=== PATIENT | male | born 1985 | race Hispanic/Latino ===

== ENCOUNTER 2017-02-26 02:05 | Emergency (ER) | payer BC ==
[2017-02-26 02:22] VITALS: BP 155/98; RESP 16; TEMP 98.6; O2SAT 100
[2017-02-26] MEDS ORDERED: Sodium Chloride 0.9% 1,000 ML IV STA (02:28)
--- NOTE | 2017-02-26 02:37 | ED PDOC ---
HPI: Chest Pain Time Seen by Provider: 02/26/17 02:12 Chief Complaint (Nursing): Palpitations Chief Complaint (Provider): Palpitations History Per: Patient History/Exam Limitations: no limitations Onset/Duration Of Symptoms: Mins Current Symptoms Are (Timing): Still Present Severity: Moderate Associated Symptoms: denies: Nausea Additional History Per: Patient Additional Complaint(s): The pt is a 31yo male, no PMHx, presents to the ED for evaluation of palpitations and chest discomfort since last night. Patient reports that he is a daily drinker with 6 shots of vodka every day - he reports on , he went out and drank more than usual. Patient then reports he had episodes of palpitation and shortness of breath throughout the day yesterday - he states he had some chest discomfort and describes it as "a muscle spasm." Pt reports there were some instances when he felt faint but denies passing out. Pt reports he was able to go to sleep but the palpitations came back, prompting his visit to the ED. He denies any other medical complaints. PCP: Dr. Russo Past Medical History Reviewed: Historical Data, Nursing Documentation, Vital Signs Vital Signs: Last Vital Signs Temp 98.6 F 02/26/17 02:20 Pulse 87 02/26/17 03:34 Resp 16 02/26/17 02:20 BP 155/98 H 02/26/17 02:20 Pulse Ox 100 02/26/17 03:34 - Medical History PMH: No Chronic Diseases - Surgical History Surgical History: No Surg Hx - Family History Family History: States: Unknown Family Hx - Social History Current smoker - smoking cessation education provided: No Alcohol: > 2 Drinks/Day (6 shots vodka/day) - Allergies Allergies/Adverse Reactions: Allergies Allergy/AdvReac Type Severity Reaction Status Date / Time No Known Allergies Allergy Verified 02/26/17 02:22 Review of Systems ROS Statement: Except As Marked, All Systems Reviewed And Found Negative Cardiovascular: Positive for: Palpitations, Other (chest discomfort) Gastrointestinal: Negative for: Nausea, Vomiting Physical Exam - Reviewed Nursing Documentation Reviewed: Yes Vital Signs Reviewed: Yes - Physical Exam Appears: Positive for: Well, Non-toxic, No Acute Distress Head Exam: Positive for: ATRAUMATIC, NORMAL INSPECTION, NORMOCEPHALIC Skin: Positive for: Normal Color, Warm, DRY Eye Exam: Positive for: Normal appearance, EOMI, PERRL Neck: Positive for: Normal, Supple Cardiovascular/Chest: Positive for: Regular Rate, Rhythm Respiratory: Positive for: Normal Breath Sounds. Negative for: Respiratory Distress Gastrointestinal/Abdominal: Positive for: Normal Exam, Soft. Negative for: Tenderness Extremity: Positive for: Normal ROM. Negative for: Deformity, Swelling Neurologic/Psych: Positive for: Alert, Oriented. Negative for: Motor/Sensory Deficits - Laboratory Results Result Diagrams: 02/26/17 02:36 02/26/17 02:36 - ECG ECG: Positive for: Interpreted By Me, Viewed By Me ECG Rhythm: Positive for: Normal QRS, Normal ST Segment, Sinus Rhythm. Negative for: ST/T Changes Rate: 87 O2 Sat by Pulse Oximetry: 100 (RA) Pulse Ox Interpretation: Normal Medical Decision Making Medical Decision Making: Time: 0230 Impression: Palpitations Differential: Cardiac arrhythmia, dehydration, electrolyte withdrawal; alcohol withdrawal less likely but possible Plan: * CBC * CMP * Troponin * EKG * Reassess Time: 033 Labs reviewed and indicate hypokalemia, hypocalcemia, hypomagnesemia. Ordered folic acid, magnesium sulfate, and thiamine Scribe Attestation: Documented by Laury Frederick acting as a scribe for January Duarte MD. Provider Attestation: All medical record entries made by the Scribe were at my direction and personally dictated by me. I have reviewed the chart and agree that the record accurately reflects my personal performance of the history, physical exam, medical decision making, and the department course for this patient. I have also personally directed, reviewed, and agree with the discharge instructions and disposition. Disposition - Clinical Impression Clinical Impression: Palpitations, Hypokalemia, Hypocalcemia, Hypomagnesemia, Alcohol abuse - Patient ED Disposition Is Patient to be Admitted: No Doctor Will See Patient In The: Office Counseled Patient/Family Regarding: Studies Performed, Diagnosis, Need For Followup - Disposition Referrals: [facility] [Outside] Disposition: Routine/Home Disposition Time: 18:30 Condition: GOOD Additional Instructions: Follow up with your PCP in 2-3 days. Instructions: Abuse of Alcohol (ED), Hypokalemia (ED), Palpitations (ED)
[2017-02-26 02:42] VITALS: PULSE 87
[2017-02-26 02:44] LABS: BASO % 0.7 % (0.0-2.0); EOS # 0.1 K/uL (0.0-0.7); EOS % 1.5 % (0.0-4.0); HEMATOCRIT 33.8 % (35.0-51.0); LYMPH # 1.9 K/uL (1.0-4.3); LYMPH % 39.3 % (20.0-40.0); MEAN CELL VOLUME 86.4 fl (80.0-94.0); MEAN CORPUSCULAR HEMOGLOBIN 28.7 pg (27.0-31.0); MEAN CORPUSCULAR HGB CONC 33.2 g/dL (33.0-37.0); MEAN PLATELET VOLUME 7.5 fl (7.2-11.7); MONO # 0.4 K/uL (0.0-0.8); NEUT # 2.4 K/uL (1.8-7.0); NEUT % 49.5 % (50.0-75.0); NRBC % 0.1 % (0.0-0.0); RED CELL DISTRIBUTION WIDTH 13.4 % (11.5-14.5); WHITE BLOOD COUNT 4.8 K/uL (4.8-10.8)
[2017-02-26 02:53] LABS: ALB/GLOB RATIO 1.2 (1.0-2.1); ALCOHOL SERUM < 10 mg/dl (0-10); ALKALINE PHOSPHATASE 51 U/L (38-126); ALT/SGPT 117 U/L (21-72); AST/SGOT 78 U/L (17-59); BILIRUBIN,TOTAL 0.3 mg/dl (0.2-1.3); BLOOD UREA NITROGEN 8 mg/dl (9-20); CARBON DIOXIDE 19 mmol/L (22-30); CHLORIDE 116 mmol/L (98-107); GFR AFRICAN-AMERICAN > 60; GLUCOSE,RANDOM 78 mg/dL (75-110); MAGNESIUM 1.2 MG/DL (1.6-2.3); SODIUM 143 mmol/l (132-148); TOTAL PROTEIN 4.9 G/DL (6.3-8.2)
[2017-02-26 03:06] LABS: POTASSIUM 2.3 MMOL/L (3.6-5.0)
[2017-02-26] MEDS ORDERED: Potassium Chloride 20 mEq ER Tab PO ONE ×4 (03:07→06:50)
[2017-02-26] MEDS ORDERED: Magnesium Sulfate 2 GM in Sodium Chloride 0.9% 100 ML IVPB ONE (03:07)
[2017-02-26 03:23] LABS: THYROID STIMULATING HORMONE 1.17 mIU/ML (0.46-4.68)
[2017-02-26] MEDS ORDERED: Potassium CL 10mEq/100ml 100 ML IVPB SCH (04:00)
--- NOTE | 2017-02-26 10:43 | CARD ---
APPROVED REPORT EKG Measurement Heart [id number] <Conclusion> Normal sinus rhythm Normal ECG
== END 2017-02-26 07:00 | disposition home or self-care (01) ==
LOC: H.ER 02:05
DX: R00.2 Palpitations (principal); F10.129 Alcohol abuse with intoxication, unspecified; E87.6 Hypokalemia; R07.89 Other chest pain
CPT/HCPCS: 80053; 83735; 84443; 84484; 85025; 93005; 96374; 99284; G0480; J0610; J3475; J3480; J7040

== ENCOUNTER 2017-04-28 20:54 | Emergency (ER) | payer BC ==
[2017-04-28 20:59] VITALS: BP 159/100; PULSE 122; RESP 18; TEMP 98.6; O2SAT 97
--- NOTE | 2017-04-28 21:34 | ED PDOC ---
Lower Extremity Pain/Injury Time Seen by Provider: 04/28/17 21:04 Chief Complaint (Nursing): Lower Extremity Problem/Injury Chief Complaint (Provider): calf injury History Per: Patient History/Exam Limitations: no limitations Onset/Duration Of Symptoms: Hrs (1) Current Symptoms Are (Timing): Still Present Additional History Per: Patient Additional Complaint(s): 31 y/o male no past medical history presents with right calf injury x 1 hour. Patient states he was playing kickball, after kicking the ball he went to step off of right leg to run to base and felt a "pop" in the back of his leg. Patient notes pain worse with weight-bearing and moving right ankle. Denies numbness/weakness right lower extremity. Past Medical History Reviewed: Historical Data, Nursing Documentation, Vital Signs Vital Signs: Last Vital Signs Temp 98.6 F 04/28/17 20:55 Pulse 122 H 04/28/17 20:55 Resp 18 04/28/17 20:55 BP 159/100 H 04/28/17 20:55 Pulse Ox 97 04/28/17 20:55 - Medical History PMH: No Chronic Diseases - Surgical History Surgical History: No Surg Hx - Family History Family History: States: Unknown Family Hx - Home Medications Home Medications: Ambulatory Orders Medication Instructions Recorded Cyclobenzaprine [Cyclobenzaprine 10 mg PO BID PRN #10 tab 04/28/17 HCl] Ibuprofen [Motrin Tab] 800 mg PO Q8 PRN #20 tab 04/28/17 - Allergies Allergies/Adverse Reactions: Allergies Allergy/AdvReac Type Severity Reaction Status Date / Time No Known Allergies Allergy Verified 04/28/17 20:55 Review of Systems ROS Statement: Except As Marked, All Systems Reviewed And Found Negative Musculoskeletal: Positive for: Leg Pain (right posterior) Physical Exam - Reviewed Nursing Documentation Reviewed: Yes Vital Signs Reviewed: Yes - Physical Exam Appears: Positive for: Well, Non-toxic, No Acute Distress Head Exam: Positive for: ATRAUMATIC, NORMAL INSPECTION, NORMOCEPHALIC Pulses-Dorsalis Pedis (L): 2+ Pulses-Dorsalis Pedis (R): 2+ Pulses-Post. Tibialis (L): 2+ Pulses-Post. Tibialis (R): 2+ Extremity: Positive for: Tenderness (right proximal/medial calf tender to palpate; no swelling, ecchymosis, deformity noted. Pain to proximal calf upon dorsiflexion right ankle), Capillary Refill (<2 sec b/l LE). Negative for: Pedal Edema, Swelling Neurologic/Psych: Positive for: Alert, Oriented. Negative for: Motor/Sensory Deficits - ECG O2 Sat by Pulse Oximetry: 97 - Progress ED Course And Treament: Toradol IM, u/s EXAM: US Right Lower Extremity Non-Vascular, Complete CLINICAL HISTORY: 31 years old, male; Injury or trauma; Injury Got hurt while playing as per pt. ; Initial encounter; Blunt trauma; Lower leg; Right; Injury date: Today; Additional info: Injury/pain proximal calf TECHNIQUE: Real-time ultrasound scan of the right lower extremity with image documentation. COMPARISON: No relevant prior studies available. FINDINGS: Soft tissues: 3.5 x 0.8 x 3.4 cm hypoechoic lesion with internal echoes within proximal calf. No internal vascularity. IMPRESSION: 1. Soft tissue lesion, nonspecific. DDX: Hematoma, complex cyst, abscess, neoplasm. Clinical correlation is needed. 2. Incidental/non-acute findings are described above. Thank you for allowing us to participate in the care of your patient. Patient right lower extremity placed in knee immobilizer; crutches given with demonstration on use. Advised RICE, rx Naproxen, flexeril given. Follow up PMD for MRI. Return to ED for worsening/concerning symptoms. Disposition - Clinical Impression Clinical Impression: Strain of calf muscle - Patient ED Disposition Is Patient to be Admitted: No Counseled Patient/Family Regarding: Studies Performed, Diagnosis, Need For Followup, Rx Given - Disposition Referrals: Apolinar Diaz MD [Staff Provider] - [facility] [Outside] Disposition: Routine/Home Disposition Time: 23:21 Condition: IMPROVED Prescriptions: Cyclobenzaprine [Cyclobenzaprine HCl] 10 mg PO BID PRN #10 tab PRN Reason: Muscle Spasm Ibuprofen [Motrin Tab] 800 mg PO Q8 PRN #20 tab PRN Reason: Pain, Moderate (4-7) Instructions: Muscle Strain (ED), RICE Therapy (ED) Forms: [employer] (Welsh)
--- NOTE | 2017-04-28 22:59 | US ---
EXAM: US Right Lower Extremity Non-Vascular, Complete CLINICAL HISTORY: 31 years old, male; Injury or trauma; Injury Got hurt while playing as per pt. ; Initial encounter; Blunt trauma; Lower leg; Right; Injury date: Today; Additional info: Injury/pain proximal calf TECHNIQUE: Real-time ultrasound scan of the right lower extremity with image documentation. COMPARISON: No relevant prior studies available. FINDINGS: Soft tissues: 3.5 x 0.8 x 3.4 cm hypoechoic lesion with internal echoes within proximal calf. No internal vascularity. IMPRESSION: 1. Soft tissue lesion, nonspecific. DDX: Hematoma, complex cyst, abscess, neoplasm. Clinical correlation is needed. 2. Incidental/non-acute findings are described above.
== END 2017-04-28 23:37 | disposition home or self-care (01) ==
LOC: H.ER 20:54
DX: S86.111A Strain of other muscle(s) and tendon(s) of posterior muscle group at lower leg level, right leg, initial encounter (principal); X50.9XXA Other and unspecified overexertion or strenuous movements or postures, initial encounter; Y92.89 Other specified places as the place of occurrence of the external cause
CPT/HCPCS: 29530; 76881; 96372; 99282; J1885; L1830

== ENCOUNTER 2017-06-11 12:39 | Emergency (ER) | payer BC ==
[2017-06-11] MEDS ORDERED: Alum-Mag Hydrox-Simethicone Susp (30 mL) PO STA (13:06)
[2017-06-11] MEDS ORDERED: Sodium Chloride 0.9% 1,000 ML IV STA (13:07)
[2017-06-11 13:47] LABS: BASO % 0.3 % (0.0-2.0); EOS # 0.1 K/uL (0.0-0.7); EOS % 1.8 % (0.0-4.0); HEMATOCRIT 39.6 % (35.0-51.0); LYMPH # 1.9 K/uL (1.0-4.3); LYMPH % 34.4 % (20.0-40.0); MEAN CELL VOLUME 85.3 fl (80.0-94.0); MEAN CORPUSCULAR HEMOGLOBIN 29.5 pg (27.0-31.0); MEAN CORPUSCULAR HGB CONC 34.5 g/dL (33.0-37.0); MEAN PLATELET VOLUME 6.9 fl (7.2-11.7); MONO # 0.4 K/uL (0.0-0.8); MONO % 7.6 % (0.0-10.0); NEUT # 3.2 K/uL (1.8-7.0); NEUT % 55.9 % (50.0-75.0); NRBC % 0.2 % (0.0-0.0); RED CELL DISTRIBUTION WIDTH 13.3 % (11.5-14.5); WHITE BLOOD COUNT 5.7 K/uL (4.8-10.8)
[2017-06-11 13:51] VITALS: RESP 18
[2017-06-11 13:57] LABS: ALB/GLOB RATIO 1.4 (1.0-2.1); ALKALINE PHOSPHATASE 67 U/L (38-126); ALT/SGPT 56 U/L (21-72); AST/SGOT 40 U/L (17-59); BILIRUBIN,TOTAL 0.4 mg/dl (0.2-1.3); BLOOD UREA NITROGEN 12 mg/dl (9-20); CALCIUM 9.3 mg/dL (8.4-10.2); CARBON DIOXIDE 21 mmol/L (22-30); CHLORIDE 103 mmol/L (98-107); GFR AFRICAN-AMERICAN > 60; GLUCOSE,RANDOM 112 mg/dL (75-110); LIPASE 51 U/L (23-300); MAGNESIUM 1.9 MG/DL (1.6-2.3); POTASSIUM 3.6 MMOL/L (3.6-5.0); SODIUM 144 mmol/l (132-148); TOTAL PROTEIN 7.7 G/DL (6.3-8.2)
[2017-06-11 15:11] VITALS: O2SAT 100
--- NOTE | 2017-06-11 15:44 | ED PDOC ---
HPI: Abdomen Time Seen by Provider: 06/11/17 13:06 Chief Complaint (Nursing): Abdominal Pain Chief Complaint (Provider): abdominal pain History Per: Patient (31 y/o male here with complaint of epigastric pain suddenly occurring today while watching TV. Admits THC today. Notes alcohol intake yesterday. Denies any vomiting. Notes heart racing today unsure if he was having panic attack.) Past Medical History Reviewed: Historical Data, Nursing Documentation, Vital Signs Vital Signs: Last Vital Signs Temp 98.2 F 06/11/17 12:40 Pulse 93 H 06/11/17 15:11 Resp 18 06/11/17 15:11 BP 142/84 06/11/17 15:11 Pulse Ox 100 06/11/17 15:11 - Family History Family History: States: Unknown Family Hx - Home Medications Home Medications: Ambulatory Orders Medication Instructions Recorded Cyclobenzaprine [Cyclobenzaprine 10 mg PO BID PRN #10 tab 04/28/17 HCl] Ibuprofen [Motrin Tab] 800 mg PO Q8 PRN #20 tab 04/28/17 Ranitidine HCl [Zantac 75] 75 mg PO BID #10 tablet 06/11/17 - Allergies Allergies/Adverse Reactions: Allergies Allergy/AdvReac Type Severity Reaction Status Date / Time No Known Allergies Allergy Verified 04/28/17 20:55 Review of Systems ROS Statement: Except As Marked, All Systems Reviewed And Found Negative Gastrointestinal: Positive for: Abdominal Pain Physical Exam - Reviewed Nursing Documentation Reviewed: Yes Vital Signs Reviewed: Yes - Physical Exam Appears: Positive for: Well, Non-toxic, No Acute Distress Head Exam: Positive for: ATRAUMATIC, NORMAL INSPECTION, NORMOCEPHALIC Skin: Positive for: Normal Color, Warm, DRY Eye Exam: Positive for: EOMI, Normal appearance, PERRL ENT: Positive for: Normal ENT Inspection Neck: Positive for: Normal, Painless ROM Cardiovascular/Chest: Positive for: Regular Rate, Rhythm Respiratory: Positive for: CNT, Normal Breath Sounds Gastrointestinal/Abdominal: Positive for: Normal Exam, Bowel Sounds, Soft Back: Positive for: Normal Inspection Extremity: Positive for: Normal ROM Neurologic/Psych: Positive for: Alert, Oriented - Laboratory Results Result Diagrams: 06/11/17 13:00 06/11/17 13:00 - ECG ECG Rhythm: Positive for: Sinus Rhythm (nsr 98 bpm no ectopy no acute changes) O2 Sat by Pulse Oximetry: 100 - Progress ED Course And Treament: patient refused iv fluids Maalox 30 ml po Patient has had nontender abdomen earlier. Feels improved after maalox. Disposition - Clinical Impression Clinical Impression: Gastritis - Patient ED Disposition Is Patient to be Admitted: No - Disposition Referrals: [facility] [Outside] Disposition: Routine/Home Disposition Time: 15:45 Condition: FAIR Prescriptions: Ranitidine HCl [Zantac 75] 75 mg PO BID #10 tablet Instructions: Gastritis (ED) Forms: [employer] (Guamanian)
[2017-06-11 16:36] VITALS: BP 141/79; PULSE 90; TEMP 98
--- NOTE | 2017-06-13 08:19 | CARD ---
APPROVED REPORT EKG Measurement Heart [id number] <Conclusion> Normal sinus rhythm Possible Left atrial enlargement
== END 2017-06-11 16:35 | disposition home or self-care (01) ==
LOC: H.ER 12:39
DX: K29.70 Gastritis, unspecified, without bleeding (principal)

== ENCOUNTER 2019-01-27 11:28 | Emergency (ER) | payer SELFPAY ==
[2019-01-27 11:37] VITALS: O2SAT 98; BMI 27.9
[2019-01-27] MEDS ORDERED: Multivitamin (MVI) 10 ML, Thiamine 100 MG, Folic Acid 1 MG in Sodium Chloride 0.9% 1,00... IV STA (11:58)
--- NOTE | 2019-01-27 12:35 | ED PDOC ---
HPI: Chest Pain Time Seen by Provider: 01/27/19 11:42 Chief Complaint (Nursing): Chest Pain Chief Complaint (Provider): Chest Pain History Per: Patient History/Exam Limitations: no limitations Onset/Duration Of Symptoms: Persistent, Worse Since (this morning) Current Symptoms Are (Timing): Still Present Additional Complaint(s): 33 year old male with medical history of anxiety, ADHD, and HTN, presents to the emergency department with a complaint of palpitations for the past 3 months. Patient reports heart feels like its racing more often with multiple episodes of suddenly waking up with tingling sensation in his fingers. He admits to daily alcohol use, approximately, 750ml of hard liquor for the past 3 years. Additionally, patient has increase in prescribed Xanax use: progressed dosage from 0.25mg to 1.50mg. He reports associated upper abdominal pain, recent weight loss, and states he drank alcohol and Xanax this morning. Last use of Adderall was yesterday. Otherwise, he denies upper hallucinations, suicidal or homicidal ideation. Past Medical History Reviewed: Historical Data, Nursing Documentation, Vital Signs Vital Signs: Last Vital Signs Temp 98.8 F 01/27/19 11:36 Pulse 55 L 01/27/19 11:36 Resp 18 01/27/19 11:36 BP 153/99 H 01/27/19 11:36 Pulse Ox 98 01/27/19 11:36 Primary Care Provider: FAMILY PROVIDER,NO - Medical History PMH: Anxiety, HTN - Family History Family History: States: Unknown Family Hx - Social History Current smoker - smoking cessation education provided: Yes (vapes) Alcohol: > 2 Drinks/Day Drugs: Cannabis (occasionally), Prescription medications (xanax; adderall) - Home Medications Home Medications: Ambulatory Orders Medication Instructions Recorded Cyclobenzaprine [Cyclobenzaprine 10 mg PO BID PRN #10 tab 04/28/17 HCl] Ibuprofen [Motrin Tab] 800 mg PO Q8 PRN #20 tab 04/28/17 Ranitidine HCl [Zantac 75] 75 mg PO BID #10 tablet 06/11/17 - Allergies Allergies/Adverse Reactions: Allergies Allergy/AdvReac Type Severity Reaction Status Date / Time No Known Allergies Allergy Verified 01/27/19 11:45 Review of Systems ROS Statement: Except As Marked, All Systems Reviewed And Found Negative Constitutional: Positive for: Weight loss Cardiovascular: Positive for: Palpitations Gastrointestinal: Positive for: Abdominal Pain (upper) Neurological: Positive for: Other (tingling sensation to fingers) Psych: Negative for: Suicidal ideation (or homicidal ideation/hallucinations) Physical Exam - Reviewed Nursing Documentation Reviewed: Yes Vital Signs Reviewed: Yes - Physical Exam Appears: Positive for: Well, No Acute Distress Head Exam: Positive for: ATRAUMATIC, NORMOCEPHALIC Skin: Positive for: Warm, Dry Eye Exam: Positive for: EOMI, PERRL ENT: Negative for: Pharyngeal Erythema, Tonsillar Exudate Neck: Positive for: Painless ROM, Supple Cardiovascular/Chest: Positive for: Regular Rate, Rhythm. Negative for: Murmur Respiratory: Positive for: Normal Breath Sounds. Negative for: Respiratory Distress Gastrointestinal/Abdominal: Positive for: Soft. Negative for: Tenderness, Mass, Guarding, Rebound Back: Positive for: Normal Inspection. Negative for: Decreased ROM Extremity: Positive for: Normal ROM. Negative for: Deformity Lymphatic: Negative for: Adenopathy Neurological/Psych: Positive for: Awake, Alert, Oriented (x3), Mood/Affect (anxious/midly anxious), Other (normal speech/thought process/concentration). Negative for: Motor/Sensory Deficits - ECG O2 Sat by Pulse Oximetry: 98 (RA) Pulse Ox Interpretation: Normal Medical Decision Making Medical Decision Making: Initial Impression: alcohol-use disorder; benzodiazepines dependence Time: 1233 --EKG: sinus bradycardia at 54 BPM. Normal QRS with (-) ST segment changes. --Offered labs to further evaluate for electrolyte abnormality. patient declines work-up and prefers to follow up in outpatient setting. provider strongly recommends addiction services and provided appropriate resources. additionally, provider discussed with patient, at length, to seek help with addiction. patient verbalizes understanding. Patient is, otherwise, medically stable for discharge home. Return precautions discussed. Clinical Impression: anxiety; alcohol-use disorder; benzodiazepines dependence; palpitations Scribe Attestation: Documented by Merlyn Willingham, acting as a scribe for Suki Garcia MD. Provider Scribe Attestation: All medical record entries made by the Scribe were at my direction and personally dictated by me. I have reviewed the chart and agree that the record accurately reflects my personal performance of the history, physical exam, medical decision making, and the department course for this patient. I have also personally directed, reviewed, and agree with the discharge instructions and disposition. Disposition - Clinical Impression Clinical Impression: Alcohol use disorder, Benzodiazepine dependence, Palpitations, Anxiety - Patient ED Disposition Is Patient to be Admitted: No Counseled Patient/Family Regarding: Diagnosis, Need For Followup - Disposition Referrals: [facility] [Outside] Disposition: Routine/Home Disposition Time: 12:15 Condition: STABLE Additional Instructions: FOLLOWUP SOON POSSIBLE WITH YOUR PHYSICIAN FOR FURTHER ASSISTANCE. YOU CAN ALSO CALL THE [facility] FOR ASSISTANCE WITH SCHEDULING APPOINTMENTS FOR SPECIALISTS OR TESTS. RETURN TO ER FOR WORSENING SYMPTOMS. Instructions: Anxiety, Adult (DC), Prescription Drug Abuse (DC), Alcohol Abuse and Alcoholism (DC), Palpitations (DC) Forms: [employer] (Portuguese)
[2019-01-27 12:38] VITALS: BP 150/97; PULSE 66; RESP 16; TEMP 98
--- NOTE | 2019-01-28 09:47 | CARD ---
APPROVED REPORT Date of service: 01/27/2019 EKG Measurement Heart [id number] 132P-6 [id number] <Conclusion> Sinus bradycardia with sinus arrhythmia Otherwise normal ECG
== END 2019-01-27 12:38 | disposition home or self-care (01) ==
LOC: H.ER 11:28
DX: R00.2 Palpitations (principal); F41.9 Anxiety disorder, unspecified; F10.10 Alcohol abuse, uncomplicated; F13.20 Sedative, hypnotic or anxiolytic dependence, uncomplicated